=== PATIENT | female | born 1960 | race Caucasian/White ===

== ENCOUNTER 2019-04-06 20:44 | Inpatient (IN) ==
[2019-04-06] MEDS ORDERED: Isovue-370 500 ML BOTTLE IVP ONE (21:07)
[2019-04-06 21:19] LABS: Basophils # 0.1 K/mcL (0.0-0.2); Basophils % 0.5 %; Eosinophils # 0.5 K/mcL (0.0-0.6); Hematocrit 37.3 % (35.3-44.9); Immature Granulocytes % 0.3 % (0-4); Lymphocytes # 1.4 K/mcL (0.6-4.6); Lymphocytes % 11.2 %; Mean Corpuscular HGB Conc 32.2 g/dL (31.6-35.5); Mean Corpuscular Hemoglobin 28.3 pg (28.0-33.3); Mean Platelet Volume 10.4 fL (9.4-12.4); Monocytes # 1.2 K/mcL (0.0-1.3); Monocytes % 9.8 %; Neutrophils # 9.1 K/mcL (1.6-8.9); Platelet Count 406 K/mcL (140-400); Red Blood Count 4.24 M/mcL (3.82-4.97); Red Cell Distribution Width 14.1 % (11.5-14.5); Segmented Neutrophils % 74.2 %; White Blood Count 12.2 K/mcL (4.3-11.1)
[2019-04-06 21:41] LABS: BUN/Creatinine Ratio 20 (6-26); Blood Urea Nitrogen 16 mg/dL (6-20); Carbon Dioxide 24 mEq/L (23-29); Chloride 105 mEq/L (98-107); Glucose 107 mg/dL (70-105); Osmolality,Calculated 286 (280-300); Potassium 3.8 mEq/L (3.5-5.1); Sodium 137 mEq/L (136-145); Troponin I < 0.03 ng/mL (< 0.04); eGFR For African Americans > 60 (> 60); eGFR For Non-African Americans > 60 (> 60)
[2019-04-06] MEDS ORDERED: Ipratropium/Albuterol Neb 3 ML IH ONE (22:14)
[2019-04-06] MEDS ORDERED: predniSONE 20 MG TABLET PO ONE (22:14)
[2019-04-06] MEDS ORDERED: Azithromycin 500 MG in 0.9 % Sodium Chloride 250 ML IVPB ONE (23:25)
[2019-04-06] MEDS ORDERED: cefTRIAXone 1,000 MG in Water for inj. (sterile) 10 ML IVP ONE (23:25)
[2019-04-07] MEDS ORDERED: Naloxone 0.4 MG/ML INJ IVP PRN (03:29)
[2019-04-07 04:10] LABS: Basophils % 0.3 %; Eosinophils % 0.2 %; Hematocrit 35.9 % (35.3-44.9); Hemoglobin 11.6 g/dL (11.5-15.4); Immature Granulocytes % 0.5 % (0-4); Lymphocytes # 0.4 K/mcL (0.6-4.6); Mean Corpuscular HGB Conc 32.3 g/dL (31.6-35.5); Mean Corpuscular Volume 86.5 fL (83.0-100.0); Mean Platelet Volume 10.6 fL (9.4-12.4); Monocytes # 0.2 K/mcL (0.0-1.3); Monocytes % 1.5 %; Neutrophils # 11.4 K/mcL (1.6-8.9); Platelet Count 385 K/mcL (140-400); Red Blood Count 4.15 M/mcL (3.82-4.97); Red Cell Distribution Width 14.1 % (11.5-14.5); Segmented Neutrophils % 94.5 %; White Blood Count 12.1 K/mcL (4.3-11.1)
[2019-04-07 04:30] LABS: Alanine Aminotransferase 13 Units/L (7-52); Albumin 3.9 g/dL (3.5-5.7); Albumin/Globulin Ratio 1.4 (1.1-2.2); Alkaline Phosphatase 93 Units/L (34-104); Aspartate Amino Transferase 17 Units/L (13-39); BUN/Creatinine Ratio 20 (6-26); Bilirubin,Total 0.5 mg/dL (0.3-1.0); Blood Urea Nitrogen 14 mg/dL (6-20); Calcium 9.2 mg/dL (8.6-10.3); Carbon Dioxide 19 mEq/L (23-29); Chloride 105 mEq/L (98-107); Chol/HDL Ratio 2.5 (0-4.9); Cholesterol 97 mg/dL (< 200); Globulin 2.7 g/dL (2.4-3.5); Glucose 142 mg/dL (70-105); HDL Cholesterol 39 mg/dL (40-59); LDL Cholesterol,Calculated 41 mg/dL (0-99); Magnesium 1.9 mg/dL (1.6-2.6); Osmolality,Calculated 287 (280-300); Potassium 3.7 mEq/L (3.5-5.1); Sodium 137 mEq/L (136-145); Total Protein 6.6 g/dL (6.4-8.9); Triglycerides 83 mg/dL (< 150); eGFR For African Americans > 60 (> 60); eGFR For Non-African Americans > 60 (> 60)
[2019-04-07 04:31] LABS: INR 1.3; Prothrombin Time 14.5 Seconds (9.4-12.1)
[2019-04-07] MEDS ORDERED: Ipratropium/Albuterol Neb 3 ML IH PRN (07:59)
[2019-04-07] MEDS ORDERED: Azithromycin 500 MG in 0.9 % Sodium Chloride 250 ML IVPB SCH (08:00)
[2019-04-07] MEDS ORDERED: D5% in Water 1,000 ML IVC PRN (08:02)
[2019-04-07] MEDS ORDERED: *HR* Dextrose 50 % in Water (Syg) 50 ML SYRINGE IVP PRN (08:02)
[2019-04-07] MEDS ORDERED: Dextrose Gel 15 GM/37.5 ML TUBE PO PRN ×2 (08:02)
[2019-04-07] MEDS ORDERED: cefTRIAXone 1,000 MG in Water for inj. (sterile) 10 ML IVP SCH (09:00)
[2019-04-07] MEDS: Insulin LISPRO 300 UNITS/3 ML VIAL SQ SCH ×2 (12:09→17:07)
[2019-04-07] MEDS ORDERED: Isovue-370 500 ML BOTTLE IVP ONE (12:19)
[2019-04-07] MEDS: *HR* Heparin 5,000 UNIT/ML VIAL SQ SCH ×2 (14:39→21:25)
[2019-04-07 15:06] LABS: Bilirubin,Urine Negative (Negative); Blood,Urine Negative (Negative); Clarity,Urine Clear (Clear); Color,Urine Yellow (Yellow); Glucose,Urine (UA) Normal (Normal); Ketones,Urine Negative (Negative); Leukocyte Esterase,Urine Negative (Negative); Nitrite,Urine Negative (Negative); Protein,Urine Negative (Neg-Trace); Specific Gravity,Urine 1.015 (1.010-1.025); Urobilinogen,Urine Normal (Normal)
[2019-04-07] MEDS ORDERED: Isovue-370 500 ML BOTTLE PO ONE (15:21)
[2019-04-07] MEDS: predniSONE 20 MG TABLET PO SCH (17:31)
[2019-04-07] MEDS: Budesonide/Formoterol 160/4.5 1 PUFF INH IH SCH (20:27)
[2019-04-08] MEDS: Insulin LISPRO 300 UNITS/3 ML VIAL SQ SCH ×5 (00:43→20:39)
[2019-04-08 04:41] LABS: Basophils % 0.1 %; Eosinophils % 0.1 %; Hematocrit 37.5 % (35.3-44.9); Hemoglobin 11.8 g/dL (11.5-15.4); Immature Granulocytes % 0.4 % (0-4); Lymphocytes # 0.5 K/mcL (0.6-4.6); Lymphocytes % 3.7 %; Mean Corpuscular HGB Conc 31.5 g/dL (31.6-35.5); Mean Corpuscular Volume 89.1 fL (83.0-100.0); Mean Platelet Volume 10.5 fL (9.4-12.4); Monocytes # 0.8 K/mcL (0.0-1.3); Monocytes % 5.4 %; Neutrophils # 12.5 K/mcL (1.6-8.9); Platelet Count 394 K/mcL (140-400); Red Blood Count 4.21 M/mcL (3.82-4.97); Red Cell Distribution Width 14.5 % (11.5-14.5); Segmented Neutrophils % 90.3 %; White Blood Count 13.8 K/mcL (4.3-11.1)
[2019-04-08 04:59] LABS: BUN/Creatinine Ratio 24 (6-26); Blood Urea Nitrogen 16 mg/dL (6-20); Carbon Dioxide 24 mEq/L (23-29); Chloride 106 mEq/L (98-107); Glucose 124 mg/dL (70-105); Potassium 4.6 mEq/L (3.5-5.1); Sodium 139 mEq/L (136-145); eGFR For African Americans > 60 (> 60); eGFR For Non-African Americans > 60 (> 60)
[2019-04-08 05:00] LABS: Calcium 9.2 mg/dL (8.6-10.3); Magnesium 2.3 mg/dL (1.6-2.6); Osmolality,Calculated 291 (280-300); Phosphorous 3.7 mg/dL (2.7-4.5)
[2019-04-08] MEDS: *HR* Heparin 5,000 UNIT/ML VIAL SQ SCH (05:54)
[2019-04-08] MEDS: Budesonide/Formoterol 160/4.5 1 PUFF INH IH SCH ×2 (07:27→20:09)
[2019-04-08 07:54] LABS: Estimated Average Glucose 131 mg/dl
[2019-04-08] MEDS ORDERED: CeFAZolin Syr 2,000MG/20 ML 2,000 MG/20 ML SYRINGE IVPB ONE (08:43)
[2019-04-08] MEDS ORDERED: Azithromycin 500 MG in 0.9 % Sodium Chloride 250 ML IVPB SCH (09:00)
[2019-04-08] MEDS ORDERED: cefTRIAXone 1,000 MG in 0.9 % Sodium Chloride Mini Bag 100 ML IVPB SCH (09:00)
[2019-04-08] MEDS: predniSONE 20 MG TABLET PO SCH (09:03)
[2019-04-08] MEDS ORDERED: ceFAZolin 2,000 MG in Water for inj. (sterile) 20 ML IVPB ONE ×2 (10:15→11:15)
[2019-04-08] MEDS ORDERED: *HR* Rocuronium Bromide 50 MG/5 ML VIAL ONE (12:17)
[2019-04-08] MEDS ORDERED: *HR* Etomidate 20 MG/10 ML AMPUL IVP ONE (12:17)
[2019-04-08] MEDS ORDERED: *HR* PHENYLEPHRINE 1,000 MCG/10 ML SYRINGE IVP ONE (12:17)
[2019-04-08] MEDS ORDERED: *HR* FentaNYL (PF) 250 MCG/5 ML VIAL ONE (12:18)
[2019-04-08] MEDS ORDERED: Ondansetron 4 MG/2 ML VIAL ONE (13:28)
[2019-04-08] MEDS ORDERED: Dexamethasone 4 MG/ML VIAL ONE (13:28)
[2019-04-08] MEDS ORDERED: Ketorolac 30 MG/ML VIAL IVP ONE (14:19)
[2019-04-08] MEDS ORDERED: *HR* FentaNYL (PF) 100 MCG/2 ML VIAL IVP PRN (14:19)
[2019-04-08] MEDS ORDERED: *HR* OxyCODONE Immed Rel 5 MG TABLET PO PRN (14:19)
[2019-04-08] MEDS ORDERED: 0.9 % Sodium Chloride 500 ML ONE (14:23)
[2019-04-08] MEDS ORDERED: *HR* Promethazine 25 MG/ML VIAL ONE (14:27)
[2019-04-08] MEDS: *HR* Promethazine 25 MG/ML VIAL IVP PRN ×2 (14:29→14:38)
[2019-04-08] MEDS ORDERED: Ringers Solution, Lactated 1,000 ML IVC SCH (14:30)
[2019-04-08] MEDS ORDERED: Naloxone 0.4 MG/ML INJ IVP PRN ×3 (15:15)
[2019-04-08] MEDS ORDERED: Dextrose Gel 15 GM/37.5 ML TUBE PO PRN ×2 (15:15)
[2019-04-08] MEDS ORDERED: D5% in Water 1,000 ML IVC PRN (15:15)
[2019-04-08] MEDS ORDERED: *HR* Dextrose 50 % in Water (Syg) 50 ML SYRINGE IVP PRN (15:15)
[2019-04-08] MEDS ORDERED: Ipratropium/Albuterol Neb 3 ML IH PRN (15:15)
[2019-04-08] MEDS: *HR* OxyCODONE/APAP 5/325 TABLET PO PRN ×2 (15:52→20:16)
[2019-04-08 16:24] LABS: Basophils % 0.1 %; Eosinophils % 0.1 %; Hematocrit 36.3 % (35.3-44.9); Hemoglobin 11.4 g/dL (11.5-15.4); Immature Granulocytes % 0.4 % (0-4); Lymphocytes # 0.3 K/mcL (0.6-4.6); Lymphocytes % 1.7 %; Mean Corpuscular HGB Conc 31.4 g/dL (31.6-35.5); Mean Corpuscular Hemoglobin 28.3 pg (28.0-33.3); Mean Corpuscular Volume 90.1 fL (83.0-100.0); Mean Platelet Volume 10.7 fL (9.4-12.4); Monocytes # 0.4 K/mcL (0.0-1.3); Monocytes % 2.1 %; Neutrophils # 17.6 K/mcL (1.6-8.9); Platelet Count 403 K/mcL (140-400); Red Blood Count 4.03 M/mcL (3.82-4.97); Red Cell Distribution Width 14.3 % (11.5-14.5); Segmented Neutrophils % 95.6 %; White Blood Count 18.4 K/mcL (4.3-11.1)
[2019-04-08] MEDS ORDERED: Insulin LISPRO 300 UNITS/3 ML VIAL SQ SCH ×3 (16:45→21:00)
[2019-04-08] MEDS: 0.9 % Sodium Chloride 1,000 ML IVC SCH (16:54)
[2019-04-09] MEDS: 0.9 % Sodium Chloride 1,000 ML IVC SCH ×2 (05:45→20:36)
[2019-04-09] MEDS: *HR* OxyCODONE/APAP 5/325 TABLET PO PRN ×3 (05:47→21:04)
[2019-04-09] MEDS: Budesonide/Formoterol 160/4.5 1 PUFF INH IH SCH ×2 (07:44→20:13)
[2019-04-09] MEDS: Insulin LISPRO 300 UNITS/3 ML VIAL SQ SCH ×3 (07:46→16:51)
[2019-04-09] MEDS: predniSONE 20 MG TABLET PO SCH (07:50)
[2019-04-09] MEDS: Azithromycin 500 MG in 0.9 % Sodium Chloride 250 ML IVPB SCH (07:51)
[2019-04-09] MEDS: cefTRIAXone 1,000 MG in Water for inj. (sterile) 10 ML IVP SCH (07:51)
[2019-04-09 11:50] LABS: Basophils % 0.1 %; Eosinophils % 0.1 %; Hematocrit 36.9 % (35.3-44.9); Hemoglobin 11.8 g/dL (11.5-15.4); Immature Granulocytes % 0.8 % (0-4); Lymphocytes # 0.5 K/mcL (0.6-4.6); Lymphocytes % 2.3 %; Mean Corpuscular Hemoglobin 27.7 pg (28.0-33.3); Mean Corpuscular Volume 86.6 fL (83.0-100.0); Monocytes % 4.4 %; Neutrophils # 20.1 K/mcL (1.6-8.9); Platelet Count 453 K/mcL (140-400); Red Blood Count 4.26 M/mcL (3.82-4.97); Red Cell Distribution Width 14.3 % (11.5-14.5); Segmented Neutrophils % 92.3 %; White Blood Count 21.8 K/mcL (4.3-11.1)
[2019-04-09 12:13] LABS: BUN/Creatinine Ratio 38 (6-26); Blood Urea Nitrogen 23 mg/dL (6-20); Calcium 8.8 mg/dL (8.6-10.3); Carbon Dioxide 22 mEq/L (23-29); Chloride 106 mEq/L (98-107); Glucose 110 mg/dL (70-105); Osmolality,Calculated 286 (280-300); Potassium 4.2 mEq/L (3.5-5.1); Sodium 136 mEq/L (136-145); eGFR For African Americans > 60 (> 60); eGFR For Non-African Americans > 60 (> 60)
[2019-04-10] MEDS: Insulin LISPRO 300 UNITS/3 ML VIAL SQ SCH ×3 (01:29→11:54)
[2019-04-10] MEDS: *HR* OxyCODONE/APAP 5/325 TABLET PO PRN ×4 (01:31→23:55)
[2019-04-10 01:58] LABS: Basophils % 0.1 %; Eosinophils # 0.3 K/mcL (0.0-0.6); Eosinophils % 1.8 %; Hematocrit 35.2 % (35.3-44.9); Hemoglobin 11.2 g/dL (11.5-15.4); Immature Granulocytes % 0.4 % (0-4); Lymphocytes % 5.2 %; Mean Corpuscular HGB Conc 31.8 g/dL (31.6-35.5); Mean Platelet Volume 10.4 fL (9.4-12.4); Monocytes # 1.9 K/mcL (0.0-1.3); Monocytes % 9.9 %; Platelet Count 427 K/mcL (140-400); Red Cell Distribution Width 14.3 % (11.5-14.5); Segmented Neutrophils % 82.6 %; White Blood Count 19.4 K/mcL (4.3-11.1)
[2019-04-10 02:15] LABS: BUN/Creatinine Ratio 35 (6-26); Blood Urea Nitrogen 21 mg/dL (6-20); Calcium 8.3 mg/dL (8.6-10.3); Carbon Dioxide 25 mEq/L (23-29); Chloride 107 mEq/L (98-107); Glucose 94 mg/dL (70-105); Osmolality,Calculated 289 (280-300); Potassium 3.8 mEq/L (3.5-5.1); Sodium 138 mEq/L (136-145); eGFR For African Americans > 60 (> 60); eGFR For Non-African Americans > 60 (> 60)
[2019-04-10] MEDS: cefTRIAXone 1,000 MG in Water for inj. (sterile) 10 ML IVP SCH (08:28)
[2019-04-10] MEDS: Azithromycin 500 MG in 0.9 % Sodium Chloride 250 ML IVPB SCH (08:28)
[2019-04-10] MEDS: Budesonide/Formoterol 160/4.5 1 PUFF INH IH SCH ×2 (11:03→20:56)
[2019-04-10] MEDS: 0.9 % Sodium Chloride 1,000 ML IVC SCH (11:10)
[2019-04-10] MEDS: predniSONE 20 MG TABLET PO SCH (14:36)
[2019-04-11] MEDS: 0.9 % Sodium Chloride 1,000 ML IVC SCH ×3 (03:00→23:53)
[2019-04-11 03:08] LABS: Basophils % 0.1 %; Eosinophils # 0.1 K/mcL (0.0-0.6); Eosinophils % 0.6 %; Hematocrit 38.2 % (35.3-44.9); Hemoglobin 12.2 g/dL (11.5-15.4); Immature Granulocytes % 0.4 % (0-4); Lymphocytes # 0.7 K/mcL (0.6-4.6); Lymphocytes % 4.9 %; Mean Corpuscular HGB Conc 31.9 g/dL (31.6-35.5); Mean Corpuscular Hemoglobin 27.9 pg (28.0-33.3); Mean Corpuscular Volume 87.2 fL (83.0-100.0); Mean Platelet Volume 10.6 fL (9.4-12.4); Monocytes % 7.4 %; Platelet Count 459 K/mcL (140-400); Red Blood Count 4.38 M/mcL (3.82-4.97); Red Cell Distribution Width 14.2 % (11.5-14.5); Segmented Neutrophils % 86.6 %; White Blood Count 13.9 K/mcL (4.3-11.1)
[2019-04-11 03:27] LABS: BUN/Creatinine Ratio 25 (6-26); Blood Urea Nitrogen 15 mg/dL (6-20); Calcium 8.7 mg/dL (8.6-10.3); Carbon Dioxide 25 mEq/L (23-29); Chloride 105 mEq/L (98-107); Glucose 108 mg/dL (70-105); Osmolality,Calculated 289 (280-300); Potassium 3.9 mEq/L (3.5-5.1); Sodium 139 mEq/L (136-145); eGFR For African Americans > 60 (> 60); eGFR For Non-African Americans > 60 (> 60)
[2019-04-11] MEDS ORDERED: Lidocaine -MPF 2% 2 ML VIAL ONE ×2 (06:33→08:23)
[2019-04-11] MEDS ORDERED: Dexamethasone 4 MG/ML VIAL ONE (06:33)
[2019-04-11] MEDS ORDERED: Lidocaine -MPF 4% 5 ML AMPUL ONE (06:33)
[2019-04-11] MEDS ORDERED: Ondansetron 4 MG/2 ML VIAL ONE (06:33)
[2019-04-11] MEDS ORDERED: *HR* Propofol 200 MG/20 ML VIAL IVP ONE ×2 (06:33→09:36)
[2019-04-11] MEDS ORDERED: *HR* Succinylcholine 200 MG/10 ML VIAL IVP ONE (06:36)
[2019-04-11] MEDS: *HR* OxyCODONE/APAP 5/325 TABLET PO PRN ×2 (07:35→16:07)
[2019-04-11] MEDS: predniSONE 20 MG TABLET PO SCH (07:35)
[2019-04-11] MEDS: Budesonide/Formoterol 160/4.5 1 PUFF INH IH SCH ×2 (07:39→20:24)
[2019-04-11] MEDS: cefTRIAXone 1,000 MG in Water for inj. (sterile) 10 ML IVP SCH (07:54)
[2019-04-11] MEDS: Azithromycin 500 MG in 0.9 % Sodium Chloride 250 ML IVPB SCH (07:55)
[2019-04-11] MEDS ORDERED: *HR* Midazolam HCl 2 MG/2 ML VIAL ONE (08:24)
[2019-04-11] MEDS ORDERED: *HR* FentaNYL (PF) 100 MCG/2 ML VIAL ONE (08:24)
[2019-04-11] MEDS ORDERED: *HR* PHENYLEPHRINE 1,000 MCG/10 ML SYRINGE IVP ONE (09:17)
[2019-04-11 16:07] LABS: Source of Body Fluid left upper lung lobe
[2019-04-11 18:27] LABS: Appearance of Body Fluid Cloudy (Clear)
[2019-04-11 18:28] LABS: Volume of Body Fluid 22 mL
[2019-04-12 01:27] LABS: Basophils % 0.1 %; Eosinophils # 0.1 K/mcL (0.0-0.6); Eosinophils % 0.5 %; Hematocrit 39.6 % (35.3-44.9); Hemoglobin 12.7 g/dL (11.5-15.4); Immature Granulocytes % 0.6 % (0-4); Lymphocytes # 0.7 K/mcL (0.6-4.6); Lymphocytes % 4.6 %; Mean Corpuscular HGB Conc 32.1 g/dL (31.6-35.5); Mean Corpuscular Hemoglobin 27.3 pg (28.0-33.3); Mean Corpuscular Volume 85.2 fL (83.0-100.0); Mean Platelet Volume 10.2 fL (9.4-12.4); Monocytes # 1.4 K/mcL (0.0-1.3); Monocytes % 8.8 %; Neutrophils # 13.5 K/mcL (1.6-8.9); Platelet Count 469 K/mcL (140-400); Red Blood Count 4.65 M/mcL (3.82-4.97); Red Cell Distribution Width 14.3 % (11.5-14.5); Segmented Neutrophils % 85.4 %; White Blood Count 15.8 K/mcL (4.3-11.1)
[2019-04-12] MEDS: Budesonide/Formoterol 160/4.5 1 PUFF INH IH SCH (07:41)
[2019-04-12 07:55] VITALS: BP 108/80
[2019-04-12] MEDS: cefTRIAXone 1,000 MG in Water for inj. (sterile) 10 ML IVP SCH (09:39)
[2019-04-12] MEDS: predniSONE 20 MG TABLET PO SCH (09:39)
[2019-04-12] MEDS: Azithromycin 500 MG in 0.9 % Sodium Chloride 250 ML IVPB SCH (09:40)
== END 2019-04-12 12:15 | disposition home or self-care (01) | DRG 163 ==
LOC: 2ANU 20:44 → EMEROOARM 20:44 → SUATTDRO 04-07 01:07 → 2ANU 04-07 01:55 → SUATTDRO 04-08 09:43 → 2NNU 04-08 12:52
PROVIDERS: ADMIT Family Medicine; ATTEND Family Medicine